=== PATIENT | male | born 1960 | race Caucasian/White ===

== ENCOUNTER 2017-11-10 14:19 | Emergency (ER) | payer BC ==
[~2017-11-10] VITALS: Ht 175.3 cm; Wt 84.4 kg
[2017-11-10] MEDS ORDERED: KEFLEX500 MG PO (16:19)
[2017-11-10 16:51] VITALS: BP 166/104
== END 2017-11-10 17:13 | disposition home or self-care (01) ==
LOC: EME 14:19
DX: S62.616B Displaced fracture of proximal phalanx of right little finger, initial encounter for open fracture (principal); S63.286A Dislocation of proximal interphalangeal joint of right little finger, initial encounter; W23.0XXA Caught, crushed, jammed, or pinched between moving objects, initial encounter; Z23 Encounter for immunization
CPT/HCPCS: 73140; 99281; 99283; S0020